=== PATIENT | male | born 1935 | race Caucasian/White ===

== ENCOUNTER 2017-02-07 10:18 | Outpatient (CLI) | payer MEDICARE ==
[2017-02-07 10:57] LABS: #Lymphocytes 1.4 thou/uL (1.20-3.40); #Monocytes 0.5 thou/uL (0.11-0.59); #Neutrophils 4.8 thou/uL (1.40-6.50); %Basophils 0.4 % (0.0-1.0); %Eosinophils 0.3 % (0.0-10.0); %Lymphocytes 20.6 % (21.0-51.0); %Monocytes 7.1 % (0.0-10.0); %Neutrophils 71.6 % (42.0-75.0); Mean Corpuscular Hemoglobin 25.3 pg (27.0-31.0); Mean Corpuscular Volume 84.4 fl (80.0-94.0); Mean Platelet Volume 8.9 fL (7.4-10.4); Platelet Count 236 thou/uL (130-400); RBC Distribution Width 15.1 % (11.5-14.5); Red Blood Cell (RBC) Count 5.14 mill/uL (4.70-6.10); White Blood Cell (WBC) Count 6.7 thou/uL (4.8-10.8)
[2017-02-07 11:29] LABS: ALT (SGPT) 13 U/L (8-55); AST (SGOT) 19 U/L (5-34); Albumin 3.8 g/dL (3.4-4.8); Alkaline Phosphatase 64 U/L (40-150); Anion Gap 17 mmol/L (10-20); BUN (Urea Nitrogen) 26 mg/dL (8.4-25.7); Bilirubin, Total 0.4 mg/dL (0.2-1.2); Calc. Creatinine Clearance 0 mL/min (70-130); Calcium 9.7 mg/dL (7.8-10.44); Carbon Dioxide 27 mmol/L (23-31); Chloride 104 mmol/L (98-107); Estimated GFR-MDRD 38; Globulin 2.7 g/dL (2.4-3.5); Glucose 132 mg/dL (83-110); Potassium 3.3 mmol/L (3.5-5.1); Protein, Total 6.5 g/dL (5.8-8.1); Sodium 145 mmol/L (136-145)
[2017-02-07 11:30] LABS: Thyroid Stimulating Hormone 1.4312 uIU/mL (0.35-4.94)
--- NOTE | 2017-02-07 13:22 | RAD ---
RADIOGRAPH ABDOMEN TWO VIEWS: History: 82-year-old male with generalized abdominal pain for two weeks. Comparison: None available. FINDINGS: The abdomen is distended. There is levoscoliosis of the lumbar spine associated with degenerative ch anges. There is a paucity of bowel gas. There is no evidence of any air filled dilated bowel loops. There is scattered gas within nondilated colon. No differential air fluid levels. No evidence of pne umoperitoneum. IMPRESSION: 1. Nonspecific bowel gas pattern, with almost complete absence of small bowel gas, making it difficu lt to evaluate the small intestine. 2. Lumbar levoscoliosis with lumbar spondylosis. POS: [place]
== END 2017-02-07 10:19 | disposition home or self-care (01) ==
LOC: NAV LAB 10:18
PROVIDERS: ATTEND Nurse Practitioner
DX: R10.84 Generalized abdominal pain (principal); M47.816 Spondylosis without myelopathy or radiculopathy, lumbar region; M41.9 Scoliosis, unspecified
CPT/HCPCS: 36415; 74020; 80053; 84439; 84443; 85025

== ENCOUNTER 2017-02-09 11:51 | Outpatient (CLI) | payer MEDICARE | END 2017-02-09 11:52 | disposition home or self-care (01) | LOC: NAVSJIPCSP 11:51 | PROVIDERS: ATTEND Nurse Practitioner | DX: R10.33 Periumbilical pain (principal) | CPT/HCPCS: 82274; 83630; 87015; 87045; 87046; 87328; 87329; 87449; 87899 ==